=== PATIENT | male | born 1950 | race Caucasian/White ===

== ENCOUNTER 2016-11-18 06:33 | Day surgery (SDC) | payer MEDICARE, OTHER ==
[~2016-11-18 06:33] MED LIST: Lactated Ringers 1,000 ML IV SCH
[2016-11-18] MEDS ORDERED: Propofol 200 MG/20 ML SDV ONE (07:43)
[2016-11-18] MEDS ORDERED: fentaNYL 100 MCG/2 ML SDV ONE (07:44)
--- NOTE | 2016-11-18 08:30 | OR ---
PREOPERATIVE DIAGNOSIS: History of polyps. POSTOPERATIVE DIAGNOSIS: Normal colonoscopic exam. PROCEDURE PROPOSED AND PROCEDURE DONE: Total flexible colonoscopy. INDICATION: This is a 66-year-old gentleman who comes in for colonic surveillance due to a history of polyps. His last examination was 5 years ago. TECHNIQUE: The patient was brought to the endoscopy suite, placed in left lateral decubitus position. He was sedated with propofol per [employer]. The flexible video colonoscope was then passed transanally and under visualization advanced to the cecum. Examination revealed a normal ascending, transverse, descending, sigmoid, and rectal colon. There was no evidence of any diverticulosis, polyps, colitis, or any other abnormalities, and the scope was then withdrawn. The patient tolerated the procedure well. FINAL IMPRESSION: 1. Normal colonoscopic exam. 2. History of prior polyps. PLAN: I feel he should continue with colonic surveillance every 5 years until about age 81. SCM: 11/18/2016 08:05:29 MODL: 11/18/2016 08:20:00 /[id number]
[2016-11-18 08:55] VITALS: BP 132/72
== END 2016-11-18 09:15 | disposition home or self-care (01) ==
LOC: VM.SDS 06:33
PROVIDERS: ATTEND Surgery
DX: Z12.11 Encounter for screening for malignant neoplasm of colon (principal); Z86.010 Personal history of colon polyps; E11.22 Type 2 diabetes mellitus with diabetic chronic kidney disease; I12.9 Hypertensive chronic kidney disease with stage 1 through stage 4 chronic kidney disease, or unspecified chronic kidney disease; N18.3 Chronic kidney disease, stage 3 (moderate); Z88.0 Allergy status to penicillin; G47.33 Obstructive sleep apnea (adult) (pediatric); N40.1 Benign prostatic hyperplasia with lower urinary tract symptoms; Z88.8 Allergy status to other drugs, medicaments and biological substances; Z79.899 Other long term (current) drug therapy; E78.1 Pure hyperglyceridemia; E26.9 Hyperaldosteronism, unspecified; Z79.84 Long term (current) use of oral hypoglycemic drugs; Z79.82 Long term (current) use of aspirin
CPT/HCPCS: 82962; G0105; J2704; J3010; J7120; 00810

== ENCOUNTER 2022-01-15 06:56 | Day surgery (SDC) | payer MEDICARE, OTHER ==
[2022-01-15] MEDS: Lactated Ringers 1,000 ML IV SCH (07:12)
[2022-01-15] MEDS ORDERED: Propofol 200 MG/20 ML SDV ONE (08:03)
[2022-01-15] MEDS ORDERED: fentaNYL 100 MCG/2 ML SDV ONE (08:03)
[2022-01-15 09:27] VITALS: BP 114/72; PULSE 74
== END 2022-01-15 10:07 | disposition home or self-care (01) ==
LOC: VM.SDS 06:56
PROVIDERS: ATTEND Family Medicine
DX: Z12.11 Encounter for screening for malignant neoplasm of colon (principal); D12.0 Benign neoplasm of cecum; K62.1 Rectal polyp; G47.33 Obstructive sleep apnea (adult) (pediatric); E11.22 Type 2 diabetes mellitus with diabetic chronic kidney disease; I12.9 Hypertensive chronic kidney disease with stage 1 through stage 4 chronic kidney disease, or unspecified chronic kidney disease; N18.30 Chronic kidney disease, stage 3 unspecified; N40.0 Benign prostatic hyperplasia without lower urinary tract symptoms; E26.9 Hyperaldosteronism, unspecified; E78.1 Pure hyperglyceridemia; Z98.890 Other specified postprocedural states; Z86.010 Personal history of colon polyps; Z88.0 Allergy status to penicillin; Z88.8 Allergy status to other drugs, medicaments and biological substances; Z79.899 Other long term (current) drug therapy; Z79.82 Long term (current) use of aspirin
CPT/HCPCS: 00811; 45380; 82947; J2704; J3010; J7120; 88305